=== PATIENT | male | born 1940 | race Caucasian/White ===

== ENCOUNTER → 2016-12-14 | Outpatient (CLI) | payer MEDICARE, BC ==
--- NOTE | ~2016-12-14 | MR17 ---
[facility]. [facility] A Service of [facility] & [facility] RADIOLOGY TEXT RESULTS PATIENT: MELANIE OHBSON LOCATION: [facility] : 38 UNIT #: [id number] AGE: [address]: Rayshawn Mata II, MD SEX: M ORDER DR: [id number] [address] [address] [id number] O MR#: [id number] Acc #: [id number] NAME: MELANIE HOBSON : 1940 SEX: M STUDY DATE/TIME: 12/14/2016 8:48 UNIT: [facility] ROOM: STUDY DESCRIPTION: MR Brain WWo Contrast Attending Physician: Rayshawn Mata II., M.D. Referring Physician: Rayshawn Mata II., M.D. Ordering Physician: Rayshawn Mata II., M.D. Primary Care Physician: Darrell Cheng M.D. MRI CENTER REPORT This report is preliminary unless electronic signature is present. EXAM MRI of the brain with and without contras dated 12/14/16 COMPARISON: MRI of the brain with and without contrast dated 05/26/15 HISTORY Cerebellar atrophy. Memory loss, imbalance for 6 months to a year. Followup to previous MRI. FINDINGS Multisequence multiplanar imaging of the brain was obtained with and without contrast. GFR measured than 60. 17 mL of MultiHance was administered intravenously. No stroke, enhancing intracranial mass, mass effect or midline shift or hydrocephalus. Scattered multiple hyperintense T2 signal lesions are noted in the subcortical white matter and periventricular white matter particularly in biparietal periventricular regions. Stable. Thick slices through the sella with pituitary gland, pineal region are unremarkable. There is mild diffuse parenchymal volume loss. Minimal asymmetrical volume loss was described in the previous MRI from 2016. The overall volume loss appears to be stable when compared to the previous study. Mild degenerative changes are noted in the cervical spine. Vascular flow voids of the major cerebral arteries and dural venous sinuses are not obstructed in these thicker slices. S-shaped nasal septal deviation is seen with mild paranasal mucosal thickening. Status post bilateral cataract surgery. IMPRESSION 1. No significant interval change. [facility] A Service of [facility] & [facility] RADIOLOGY TEXT RESULTS PATIENT: MELANIE HOBSON LOCATION: [facility] : 38 UNIT #: [id number] AGE: [address]: Rayshawn Mata II, MD SEX: M ORDER DR: Dictated by... Enio Casanova M.D. THIS IS AN ELECTRONICALLY VERIFIED REPORT Enio Casanova M.D. at 12/16/2016 10:48 AM CPR/cmm TD: 12/14/2016 12:59 JOB #: [id number] MRI CENTER REPORT
[2016-12-14 09:15] LABS: POC - CREATININE 1.06 mg/dL (0.64-1.27); POC - GFR >60.0 mL/min (>60)
== END | disposition home or self-care (01) ==
LOC: SMRI 08:06
PROVIDERS: Psychiatry & Neurology Neurology
DX: G31.9 Degenerative disease of nervous system, unspecified (principal)
CPT/HCPCS: 70553; 82565; A9581

== ENCOUNTER → 2017-04-08 | Outpatient (CLI) | payer MEDICARE, BC ==
--- NOTE | ~2017-04-08 | MR113 ---
[facility]. [facility] A Service of [facility] RADIOLOGY TEXT RESULTS PATIENT: MELANIE HOBSON LOCATION: [facility] : 38 UNIT #: [id number] AGE: [address]: Darrell Cheng MD SEX: M ORDER DR: [id number] [address] [address] [id number] O MR#: [id number] Acc #: [id number] NAME: MELANIE HOBSON : 1940 SEX: M STUDY DATE/TIME: 04/08/2017 10:54 UNIT: [facility] ROOM: STUDY DESCRIPTION: MR Lumbar Wo Contrast Attending Physician: Darrell Cheng M.D. Referring Physician: Darrell Cheng M.D. Ordering Physician: Debbie Cardoza Aprn Primary Care Physician: Darrell Cheng M.D. MRI CENTER REPORT This report is preliminary unless electronic signature is present. EXAM Lumbar MRI HISTORY Chronic back pain for several years, worsening over the past 6 months with radiation to bilateral lower extremities. TECHNIQUE Multiplanar imaging of the lumbar spine was performed with short and long TR. This CT exam was performed with one or more of the following radiation dose reduction techniques: automatic exposure control, adjustment of mA and/or kV according to patient size, and iterative reconstruction. FINDINGS There is a mild generalized lumbar dextroscoliosis. Degenerative changes are seen at all lumbar discs. At L1-L2, there is mild concentric disc bulging and mild bilateral facet hypertrophy. The canal and foramina are mildly narrowing. At L2-L3, there is broad-based mild disc bulging. The facets are intact. Central stenosis is mild. The foramina are widely patent. At L3-L4, there is broad-based mild disc bulging and mild bilateral facet hypertrophy. This results in mild central stenosis. Foraminal narrowing is mild on both sides. At L4-L5, there is disc space narrowing with a broad-based posterior disc osteophyte complex and moderately severe facet hypertrophy. Central stenosis is moderately severe. Foraminal stenosis is moderately severe on [facility] A Service of [facility] RADIOLOGY TEXT RESULTS PATIENT: MELANIE HOBSON LOCATION: [facility] : 38 UNIT #: [id number] AGE: [address]: Darrell Cheng MD SEX: M ORDER DR: both sides and symmetric from one side to the other. At L5-S1, there is disc space narrowing with reactive endplate changes and a broad-based posterior osteophyte. There is facet hypertrophy that is mild on the left and moderate on the right. Central stenosis is mild. Foraminal stenosis is moderately severe on both sides and worse on the right than on the left, predominantly from facet spurring. The conus is normal. There is no evidence of marrow edema or paraspinous mass. IMPRESSION Multilevel lumbar degenerative and facet disease, as described above [id number]. Central stenosis is most prominent at L4-L5. Foraminal stenosis is most prominent at L4-L5 and L5-S1, particularly L5-S1 on the right where asymmetric facet hypertrophy contacts the exiting nerve root. No discrete disc herniation is seen. Dictated by... Srinivasa Morales M.D. THIS IS AN ELECTRONICALLY VERIFIED REPORT Srinivasa Morales M.D. at 04/14/2017 7:10 AM SOL/yesenia TD: 04/08/2017 20:56 JOB #: [id number] MRI CENTER REPORT Page 1 of 1
== END | disposition home or self-care (01) ==
LOC: SMRI 10:36
DX: M51.16 Intervertebral disc disorders with radiculopathy, lumbar region (principal); M48.06 Spinal stenosis, lumbar region
CPT/HCPCS: 72148

== ENCOUNTER → 2017-07-06 | Outpatient (CLI) | payer MEDICARE, BC ==
--- NOTE | ~2017-07-06 | MR134 ---
[facility] A Service of [facility] RADIOLOGY TEXT RESULTS PATIENT: MELANIE HOBSON LOCATION: [facility] : 38 UNIT #: [id number] AGE: [address]: Rayshawn Mata II, MD SEX: M ORDER DR: [id number] [facility] [address] [place], [place] [address] [id number] O MR#: [id number] Acc #: [id number] NAME: MELANIE HOBSON : 1940 SEX: M STUDY DATE/TIME: 07/06/2017 8:08 UNIT: [facility] ROOM: STUDY DESCRIPTION: MR MRA Neck Wo Contrast Attending Physician: Rayshawn Mata II., M.D. Referring Physician: Rayshawn Mata II., M.D. Ordering Physician: Rayshawn Mata II., M.D. Primary Care Physician: Darrell Cheng M.D. MRI CENTER REPORT This report is preliminary unless electronic signature is present. EXAM MR angiogram of the neck HISTORY Cerebellar atrophy, visual changes and dementia for 3 years with loss of balance, and also history of hypertension. COMMENT MR angiography performed neck vessels without contrast centered at the level of the carotid bifurcations. COMPARISON There is no comparison MR angiogram. There is a carotid Doppler ultrasound of 2016 pending zoroastrianism. FINDINGS By NASCET criteria there is 0% stenosis suspected at the left carotid bifurcation. By NASCET criteria, 0% stenosis is suspected at the right carotid bifurcation. Both vertebral arteries are patent with the left being mildly dominant. Proximal vessel is not well assessed due to motion on a noncontrast study. IMPRESSION By NASCET criteria no hemodynamically significant stenosis is suspected in either carotid bifurcation. Both vertebral arteries are patent in the visualized portions. Dictated by... Livier Ricks M.D. THIS IS AN ELECTRONICALLY VERIFIED REPORT Livier Ricks M.D. at 07/07/2017 7:42 AM SAC/to [facility] A Service of [facility] RADIOLOGY TEXT RESULTS PATIENT: MELANIE HOBSON LOCATION: [facility] : 38 UNIT #: [id number] AGE: [address]: Rayshawn Mata II, MD SEX: M ORDER DR: TD: 07/06/2017 21:10 JOB #: [id number] MRI CENTER REPORT Page 1 of 1 COPY
--- NOTE | ~2017-07-06 | MR122 ---
[facility] A Service of [facility] RADIOLOGY TEXT RESULTS PATIENT: MELANIE HOBSON LOCATION: [facility] : 38 UNIT #: [id number] AGE: [address]: Rayshawn Mata II, MD SEX: M ORDER DR: [id number] [facility] [address] [place], [place] [address] [id number] O MR#: [id number] Acc #: [id number] NAME: MELANEI HOBSON : 1940 SEX: M STUDY DATE/TIME: 07/06/2017 7:57 UNIT: [facility] ROOM: STUDY DESCRIPTION: MR MRA Head Wo Contrast Attending Physician: Rayshawn Mata II., M.D. Referring Physician: Rayshawn Mata II., M.D. Ordering Physician: Rayshawn Mata II., M.D. Primary Care Physician: Darrell Cheng M.D. MRI CENTER REPORT This report is preliminary unless electronic signature is present. EXAM MR angiogram head, without. HISTORY Cerebellar atrophy. Visual disturbance and dementia for 3 years, loss of balance. No falls. History of hypertension and glaucoma. COMMENT MR angiography performed [facility] [place] vasculature. COMPARISON Brain MRI is from 12/14/2016. FINDINGS There is no intracranial vascular cutoff. There is a small right posterior communicator and probably a tiny left posterior communicator. Anatomy at the level of the anterior communicator is complex. There is essentially duplicated left A2 vessel and probably a tiny anterior communicator that extends to the right side from it. No focal central stenosis is seen. No intracranial aneurysm is suspected allowing for the technical limitation of MR angiography for assessment for aneurysms that are small. Both vertebral arteries supply the basilar. The left is dominant. IMPRESSION 1. Vascular variations are detailed above. No focal central stenosis or intracranial vascular cutoff. Dictated by... Livier Ricks M.D. THIS IS AN ELECTRONICALLY VERIFIED REPORT [facility] A Service of [facility] RADIOLOGY TEXT RESULTS PATIENT: MELANIE HOBSON LOCATION: [facility] : 38 UNIT #: [id number] AGE: [address]: Rayshawn Mata II, MD SEX: M ORDER DR: Livier Ricks M.D. at 07/07/2017 7:42 AM CARTER/andrés TD: 07/06/2017 20:57 JOB #: [id number] MRI CENTER REPORT Page 1 of 1 COPY
== END | disposition home or self-care (01) ==
LOC: CMRI 07:35
DX: G31.9 Degenerative disease of nervous system, unspecified (principal)
CPT/HCPCS: 70544; 70547